=== PATIENT | male | born 1990 | race African-American/Black ===

== ENCOUNTER 2017-01-06 11:22 | Emergency (ER) | payer OTHER ==
[~2017-01-06] VITALS: Ht 170.2 cm; Wt 83.9 kg
[~2017-01-06 11:22] MED LIST: APAP500; IBUPROFEN 800800 MG PO; KEFLEX500 MG PO; NEOSPORIN ANT70.8 GM TP; ULTRAM 50MG TAB50 MG PO
[2017-01-06 11:23] VITALS: BP 136/68
[2017-01-06] MEDS ORDERED: IBUPROFEN 600600 M1 PO (12:31)
== END 2017-01-06 12:31 | disposition home or self-care (01) ==
LOC: ER 11:22
DX: S93.402A Sprain of unspecified ligament of left ankle, initial encounter (principal); H61.23 Impacted cerumen, bilateral; Z98.890 Other specified postprocedural states; X58.XXXA Exposure to other specified factors, initial encounter; Y93.61 Activity, american tackle football; Y92.321 Football field as the place of occurrence of the external cause; Y99.8 Other external cause status

== ENCOUNTER 2019-07-03 11:07 | Emergency (ER) | payer OTHER ==
[~2019-07-03] VITALS: Ht 170.2 cm; Wt 81.7 kg
[~2019-07-03 11:07] MED LIST changes: +IBUPROFEN 600600 M1 PO
[2019-07-03 12:00] VITALS: BP 138/71
== END 2019-07-03 12:00 | disposition home or self-care (01) ==
LOC: ER 11:07
DX: H61.23 Impacted cerumen, bilateral (principal); H61.21 Impacted cerumen, right ear